=== PATIENT | female | born 1985 | race Caucasian/White ===

== ENCOUNTER 2018-09-16 11:19 | Inpatient (IN) | payer MEDICAID ==
[2018-09-16] MEDS ORDERED: LIDOCAINE 1% (MPF) 30 ML INJ INJ (12:00)
[2018-09-16] MEDS ORDERED: OXYTOCIN 30 UNITS/LR 500 ML IV ×2 (12:00→19:00)
[2018-09-16] MEDS ORDERED: CARBOPROST 250 MCG INJ IM ×2 (12:00→22:30)
[2018-09-16] MEDS ORDERED: METHYLERGONOVINE 0.2 MG INJ IM (12:00)
[2018-09-16] MEDS ORDERED: MISOPROSTOL 200 MCG TAB PR ×2 (12:00→22:30)
[2018-09-16 12:32] LABS: ADD MAN DIFF? NO
[2018-09-16 12:35] LABS: BASOPHILS % 0.2 % (0.0-2.0); EOSINOPHILS % 0.3 % (0.0-7.0); HEMATOCRIT 39.8 % (37.0-47.0); HEMOGLOBIN 13.3 g/dl (12.0-16.0); LYMPHOCYTES # 1.8 10^3/ul (0.8-2.9); LYMPHOCYTES % 13.7 % (15.0-51.0); MEAN CORPUSCULAR HEMOGLOBIN 29.6 pg (29.0-33.0); MEAN CORPUSCULAR HGB CONC 33.4 g/dl (32.0-37.0); MEAN CORPUSCULAR VOLUME 88.6 fl (82.0-101.0); MEAN PLATELET VOLUME 11.4 fl (7.4-10.4); MONOCYTE # 0.6 10^3/ul (0.3-0.9); MONOCYTES % 4.3 % (0.0-11.0); NEUTROPHIL # 10.8 10^3/ul (1.6-7.5); NEUTROPHILS % 80.5 % (39.0-77.0); PLATELET COUNT 235 10^3/UL (140-415); RED BLOOD COUNT 4.49 10^6/ul (4.20-5.40); RED CELL DISTRIBUTION WIDTH 12.8 % (11.5-14.5)
[2018-09-16 12:35] LABS: WHITE BLOOD COUNT 13.4 10^3/ul (4.8-10.8)
[2018-09-16 12:53] LABS: INR 0.82; PROTIME 11.4 Sec (11.9-14.9); PT RATIO 0.9
[2018-09-16 12:54] LABS: PARTIAL THROMBOPLASTIN TIME 25.6 Sec (23.0-35.0)
[2018-09-16 18:16] LABS: RAPID PLASMA REAGIN NONREACTIVE (NR)
[2018-09-16] MEDS: LACTATED RINGER'S 1,000 ML IV (19:39)
[2018-09-16] MEDS: BUTORPHANOL 2 MG INJ IV (19:48)
[2018-09-16] MEDS ORDERED: LIDOCAINE 1% (MPF) 30 ML INJ (21:01)
[2018-09-16] MEDS: MINERAL OIL LIGHT 10 ML VIAL TOP (21:30)
[2018-09-16] MEDS: OXYTOCIN 30 UNITS/LR 500 ML IV ×2 (21:54→23:26)
[2018-09-16] MEDS: LACTATED RINGER'S 1,000 ML IV* (22:35)
[2018-09-16] MEDS: IBUPROFEN 600 MG TAB PO (23:20)
[2018-09-17] MEDS: OXYTOCIN 30 UNITS/LR 500 ML IV ×2 (00:16→00:40)
[2018-09-17] MEDS: METHYLERGONOVINE 0.2 MG INJ IM (00:17)
[2018-09-17] MEDS: HYDROCODONE/APAP (5/325) TAB PO ×2 (00:38→05:09)
[2018-09-17] MEDS: LANOLIN 7 GM TUBE TOP (00:39)
[2018-09-17] MEDS: BENZOCAINE 20% 56 ML SPRAY TOP (00:39)
[2018-09-17] MEDS: IBUPROFEN 600 MG TAB PO ×4 (05:58→23:36)
[2018-09-17] MEDS: LACTATED RINGER'S 1,000 ML IV* ×2 (06:16→14:16)
[2018-09-17 08:37] LABS: ADD MAN DIFF? NO
[2018-09-17 08:40] LABS: BASOPHILS % 0.2 % (0.0-2.0); EOSINOPHILS # 0.1 10^3/ul (0.0-0.5); EOSINOPHILS % 0.4 % (0.0-7.0); HEMATOCRIT 30.3 % (37.0-47.0); HEMOGLOBIN 10.2 g/dl (12.0-16.0); LYMPHOCYTES # 2.6 10^3/ul (0.8-2.9); LYMPHOCYTES % 15.7 % (15.0-51.0); MEAN CORPUSCULAR HEMOGLOBIN 30.2 pg (29.0-33.0); MEAN CORPUSCULAR HGB CONC 33.7 g/dl (32.0-37.0); MEAN CORPUSCULAR VOLUME 89.6 fl (82.0-101.0); MEAN PLATELET VOLUME 11.3 fl (7.4-10.4); NEUTROPHIL # 12.8 10^3/ul (1.6-7.5); NEUTROPHILS % 76.9 % (39.0-77.0); PLATELET COUNT 187 10^3/UL (140-415); RED BLOOD COUNT 3.38 10^6/ul (4.20-5.40); RED CELL DISTRIBUTION WIDTH 13.2 % (11.5-14.5)
[2018-09-17 08:40] LABS: WHITE BLOOD COUNT 16.7 10^3/ul (4.8-10.8)
[2018-09-18] MEDS: IBUPROFEN 600 MG TAB PO ×2 (05:38→11:40)
[2018-09-18] MEDS: MAGNESIUM HYDROXIDE 30ML CUP PO (11:39)
[2018-09-18] MEDS: DIPHTH/TET/ACEL PERTUSS (ADULT) 0.5 ML VIAL IM* (11:41)
== END 2018-09-18 17:45 | disposition home or self-care (01) | DRG 806 ==
LOC: OBT 11:19 → L-D 11:19 → OBT 11:43 → L-D 11:34 → PP1 23:34
PROVIDERS: Obstetrics & Gynecology
PROC: 10E0XZZ Delivery of Products of Conception, External Approach (ICD-10-PCS; principal; 2018-09-16)
PROC: 0HQ9XZZ Repair Perineum Skin, External Approach (ICD-10-PCS; 2018-09-16)
PROC: 0UCG7ZZ Extirpation of Matter from Vagina, Via Natural or Artificial Opening (ICD-10-PCS; 2018-09-17)
DX: O77.0 Labor and delivery complicated by meconium in amniotic fluid (principal); O72.1 Other immediate postpartum hemorrhage; Z37.0 Single live birth; O70.0 First degree perineal laceration during delivery; Z3A.40 40 weeks gestation of pregnancy; Z23 Encounter for immunization
CPT/HCPCS: 85025; 85610; 85730; 86592; 86850; 86900; 86901; 90686; 90715; 99464